=== PATIENT | male | born 2000 | race Two or more races ===

== ENCOUNTER 2022-01-10 16:43 | Emergency (ER) | payer BC, SELFPAY ==
[2022-01-10 17:12] VITALS: BP 124/79; PULSE 80; RESP 17; TEMP 36.3; O2SAT 98; BMI 26.8
[2022-01-10 17:24] LABS: Appearance Urine CLEAR; Color Urine OTHER; Glucose Urine UA NEG (NEG); Leukocyte Esterase Urine TRACE (NEG); Nitrite Urine NEG (NEG); PH 7.5 (5.0-8.0); Specific Gravity - Urine <= 1.005 (1.005-1.025); UACC Culture Trigger NO; Urine Blood 3+ (NEG); Urine Ketones NEG (NEG); Urine Protein TRACE MG/DL (NEG-TRACE)
[2022-01-10 17:36] LABS: Mucus Urine TRACE /LPF; Renal Epithelial Cells Urine TRACE /LPF; Squamous Epithelial Cell Urine TRACE /LPF; WBC Urine 0-2 /HPF (0-4)
--- NOTE | 2022-01-10 19:51 | ED_ITS ---
HPI - Male Genitourinary General Chief complaint: Urogenital-Male Stated complaint: blood in urine/testicle pain Time Seen by Provider: 01/10/22 18:28 Source: patient Mode of arrival: ambulatory Limitations: no limitations History of Present Illness HPI Narrative: Patient is a 21 year old male presenting to the emergency department today with blood in his urine and testicular pain. Patient states that over the last 3 weeks he has had intermittent testicular pain and blood in his urine. Patient states that he is sexually active. Patient denies any dizziness, lightheadedness, abdominal pain, nausea, vomiting, fever, chills, blurry vision, double vision, loss of vision, chest pain, difficulty breathing, shortness of breath, back pain, night sweats, pain with urination, increased urinary frequency, increased urinary urgency, blood in his stool, syncope or a near syncopal episode, recent trauma or falls, bowel incontinence, bladder incontinence, bowel retention, bladder retention, or any other complaints at this time. MD Complaint: testicle pain Onset (ago): week(s) (3) Duration: intermittent Location: right testicle and left testicle Severity: mild Severity scale (1-10): 3 Quality: dull Relieving factors: none Exacerbating factors: none Associated symptoms: Reports blood in urine Related Data Sexually active: Yes Previous Rx's Medication Instructions Recorded doxycycline hyclate 100 mg capsule 100 mg PO BID 10 Days #20 cap 01/10/22 Allergies Allergy/AdvReac Type Severity Reaction Status Date / Time No Known Allergies Allergy Verified 01/10/22 17:16 [No Known Allergies*] Review of Systems Constitutional: Constitutional: Reports no additional constitutional complaints, Denies chills, Denies fever(s) and Denies night sweats Eyes: Eyes: Reports no additional eye complaints, Denies blurry vision, Denies change in vision, Denies diplopia, Denies eye discharge, Denies loss of vision and Denies eye pain ENT: Denies dizziness Cardiovascular: Cardiovascular: Reports no additional cardiovascular complaints, Denies chest pain, Denies lightheadedness, Denies Loss of Consciousness and Denies dyspnea Respiratory: Respiratory: Reports no additional respiratory complaints and Denies dyspnea Gastrointestinal: Gastrointestinal: Reports no additional gastrointestinal complaints, Denies abdominal pain, Denies melena, Denies hematochezia, Denies change in bowel habits and Denies change in stool character Genitourinary: Genitourinary: Reports no additional male genitourinary complaints, Reports hematuria, Denies oliguria, Denies difficulty urinating, Denies dysuria, Reports testicular pain, Denies urinary frequency, Denies urinary hesitancy, Denies urinary incontinence and Denies urinary urgency Musculoskeletal: Musculoskeletal: Reports no additional musculoskeletal complaints, Denies numbness and Denies tingling Neurologic: Denies dizziness, Denies loss of vision, Denies numbness and Denies tingling Psychiatric: Psychiatric: Reports no additional psychiatric complaints Endocrine: Endocrine: Reports no additional endocrine complaints Hematologic/Lymphatic: Hematologic/Lymphatic: Reports no additional hematologic/lymphatic complaints Allergic/Immunologic: Allergic/Immunologic: Reports no additional allergic/immunologic complaints PMFSH Past Medical History Attestation statement: The following information was validated with the patient. Source: old records reviewed Social History Social History Advance Directives: No Advance Directives Information Provided: No Physical Exam Vital Signs: Vital Signs: Last Vital Signs Temp 97.3 F 01/10/22 17:12 Pulse 80 01/10/22 17:12 Resp 17 01/10/22 17:12 BP 124/79 01/10/22 17:12 Pulse Ox 98 01/10/22 17:12 BMI result Body Mass Index 26.8 Const: General: cooperative, no acute distress, alert and awake Nutritional Appearance: well nourished Orientation/consciousness: patient oriented x3 Limitations: no limitations HEENT: Head: Yes normal to inspection and Yes atraumatic Ears: hearing grossly normal bilaterally and external ears normal General nose exam: Normal external nose present, no nasal discharge noted and no epistaxis Face and sinus: Yes normal facial exam, No abrasion and No laceration Mouth: Normal oral and palatal mucosa present, no drooling and no muffled voice Eyes: General: appearance normal, both eyes and all related structures Periorbital: periorbital findings normal Eyelids: Yes eyelids normal Conjunctivae: conjunctivae normal Pupils: Equal, round and reactive pupils present EOM: EOMs intact bilaterally Neck: Neck: Yes normal visual inspection, Yes full ROM and Yes no lymphadenopathy Chest: Chest palpation & inspection: normal inspection of the chest Resp: Effort & Inspection: normal respiratory effort and able to speak in complete sentences Auscultation: clear to auscultation bilaterally Cardio: Rate: regular rate Rhythm: regular rhythm GI: Inspection: Yes normal to inspection Neuro: General: patient oriented x3 and moves all extremities Cranial nerves: Yes Equal, round and reactive pupils present Cognition (Neuro): normal cognition Motor exam (neuro): 5/5 motor strength present throughout Sensory Exam: Normal double simultaneous stimulation for sensation Coordination: [id number] test normal Extrem: General: Yes normal to inspection, Yes full ROM and Yes capillary refill normal Psych: Appearance: grossly normal Mental Status: mental status grossly normal Affect: normal affect Attitude: cooperative Thought process: Normal thought process present Thought content: Normal thought content present Insight: Good insight present (Psych) MDM - Male Genitourinary MDM Narrative Medical decision making narrative: Patient is a 21 year old male presenting to the emergency department today with blood in his urine and intermittent testicular pain. Patient's physical exam was unremarkable. Patient's urine showed blood but was otherwise unremarkable. I explained my physical exam findings as well as all test results to the patient. I answered all questions asked by the patient. Patient received IM Rocephin. I stressed the importance of the patient taking his medication as prescribed. I stressed the importance of the patient following up with his primary care provider. I stressed the importance of the patient returning to the emergency department immediately if his symptoms were to worsen or if he were to develop any dizziness, shortness of breath, difficulty breathing, chest pain, blurry vision, loss of vision, nausea, vomiting, abdominal pain, fever, chills, back pain, or any other complaints. Patient verbalized agreement and understanding with this treatment plan and discharge. Differential Diagnosis Differential diagnosis: Likely epididymitis Medical Records Attestation: I reviewed the patient's medical records. Lab Data Attestation: I reviewed the patient's lab results. Labs: Lab Results 01/10/22 Range/Units 17:16 Urine Color OTHER A Urine Appearance CLEAR Urine pH 7.5 (5.0-8.0) Ur Specific Shaw <= 1.005 (1.005-1.025) Urine Protein TRACE (NEG-TRACE) MG/DL Urine Glucose (UA) NEG (NEG) MG/DL Urine Ketones NEG (NEG) MG/DL Urine Blood 3+ H (NEG) Urine Nitrite NEG (NEG) Ur Leukocyte Esterase TRACE H (NEG) Urine RBC 15-29 H (0) /HPF Urine WBC 0-2 (0-4) /HPF Ur Squamous Epith Cells TRACE /LPF Ur Renal Epithelial Cell TRACE /LPF Urine Bacteria NONE /LPF Urine Mucus TRACE /LPF Discharge Plan Discharge Clinical Impression: Acute epididymitis Patient Disposition: Home, Self-Care Instructions: Epididymitis (ED) Additional Instructions: Follow up with your primary care provider. Return to the emergency department immediately if your symptoms worsen or if you develop any dizziness, shortness of breath, difficulty breathing, chest pain, blurry vision, loss of vision, nausea, vomiting, abdominal pain, fever, chills, back pain, or any other complaints. Prescriptions: New doxycycline hyclate 100 mg capsule 100 mg PO BID 10 Days Qty: 20 0RF Referrals: [facility] [Provider Group] Print Language: Honduran
[2022-01-10] MEDS: cefTRIAXone sodium 500 MG, Lidocaine HCl 1 % MPF 1 ML IM (20:29)
--- NOTE | 2022-01-10 20:41 | PC.NURSE ---
URINE CT/NG NOT NEEDED PER CLAUDE GONZALES.
== END 2022-01-10 20:40 | disposition home or self-care (01) ==
PROVIDERS: Emergency Provider Internal Medicine
DX: N45.1 Epididymitis (principal); R31.9 Hematuria, unspecified; N50.812 Left testicular pain; N50.811 Right testicular pain
CPT/HCPCS: 81001; 96372; 99284; J0696

== ENCOUNTER 2022-01-28 10:20 | Inpatient (IN) | payer BC, SELFPAY ==
[2022-01-28] VITALS (8 sets, daily range): BP systolic 118–128; BP diastolic 63–85; PULSE 51–82; RESP 16–18; TEMP 36.3–36.9; O2SAT 98–100; BMI 25.9
--- NOTE | ~2022-01-28 | CT_ITS ---
EXAMINATION: CT ABDOMEN AND PELVIS WITHOUT CONTRAST CLINICAL INFORMATION: Right lower quadrant abdominal pain. Nausea and vomiting. COMPARISON: None TECHNIQUE: Multidetector volumetric imaging was performed from the superior aspect of the liver through the pubic symphysis. Sagittal and coronal reformatted images were obtained on the technologist's workstation. This CT examination was performed using dose optimization techniques as appropriate, variously including the following: *Automated exposure control *Adjustment of mA and/or kV according to patient size (this includes techniques or standardized protocols for targeted exams where dose is matched to indication/reason for exam; i.e. extremities or head) *Use of iterative reconstruction technique DLP: 505 mGy-cm FINDINGS: LUNG BASES: The visualized lung bases are unremarkable. LIVER, GALLBLADDER, AND BILIARY TREE: The liver is normal in size, shape, and attenuation. No focal hepatic lesion or biliary ductal dilatation is present. The gallbladder is unremarkable with no evidence of radiopaque gallstones, gallbladder wall thickening, or obvious pericholecystic inflammatory changes. PANCREAS: Unremarkable. SPLEEN: Unremarkable. ADRENAL GLANDS: Unremarkable. KIDNEYS AND URETERS: The kidneys are normal in size, shape, and attenuation. There is a 1.4 cm stone at the left ureteropelvic junction measuring up to 788 Hounsfield units and located 12.5 cm from the posterior axillary line. There is mild proximal hydronephrosis with mild adjacent stranding. There is an additional left renal pelvic stone within the lower pole measuring up to 1.1 cm. Nonobstructing right upper pole renal stone measuring 0.4 cm. No right ureteral stone. No right-sided hydronephrosis or hydroureter. BLADDER: Unremarkable. GASTROINTESTINAL TRACT: No small- or large-bowel obstruction. No bowel wall thickening or inflammatory change. The appendix is fluid-filled with multiple small appendicoliths. There is slight dilatation measuring up to 0.9 cm with adjacent stranding. Findings are consistent with early appendicitis. No extraluminal air or organized fluid collection to suggest leak or rupture. ABDOMINAL WALL: No significant hernia is appreciated. LYMPH NODES: Normal. VASCULAR: Unremarkable. PELVIC VISCERA: The prostate and seminal vesicles are unremarkable. OSSEOUS STRUCTURES: Unremarkable. CT/CT abdomen pelvis wo con IMPRESSION: 1. Mildly dilated, fluid-filled appendix with multiple small appendicoliths and mild adjacent stranding consistent with acute appendicitis. No evidence of perforation or abscess formation. 2. Left renal pelvic stone measuring 1.4 cm with adjacent stranding and mild left-sided hydronephrosis. Additional 1.1 cm left lower pole renal stone. Nonobstructing right-sided 0.4 cm renal stone. No right-sided hydronephrosis or hydroureter. Fleischner guidelines were followed.
[2022-01-28 11:17] LABS: MANUAL DIFF FLAG NO
[2022-01-28 11:20] LABS: Basophils Absolute Auto 0.1 X10*3/uL (0.0-0.2); Basophils Percent Auto 0.5 % (0-2); Eosinophils Percent Auto 0.3 % (0-4); Hematocrit 43.5 % (42.0-52.0); Hemoglobin 14.7 g/dl (14.0-18.0); Imm Gran Abs Auto 0.06 X10*3/uL (0.00-0.03); Imm Gran Pct Auto 0.4 % (0.0-0.4); Lymphocytes Absolute Auto 1.3 X10*3/uL (1.2-4.9); Lymphocytes Percent Auto 8.7 % (20-40); Mean Corpuscular HGB Conc 33.8 g/dl (31.0-36.0); Mean Corpuscular Hemoglobin 28.4 pg (27.0-33.0); Mean Corpuscular Volume 84.1 fL (80.0-98.0); Mean Platelet Volume 8.8 fL (9.4-12.4); Monocytes Absolute Auto 0.7 X10*3/uL (0.1-1.2); Monocytes Percent Auto 4.8 % (2-11); Neutrophils Absolute Auto 12.2 x10*3/uL (2.0-8.3); Neutrophils Percent Auto 85.3 % (45-73); Platelet Count 289 X10*3/uL (160-400); Red Blood Count 5.17 X10*6/uL (4.60-5.80); Red Cell Distribution Width 12.4 % (11.0-16.0); White Blood Count 14.3 X10*3/uL (4.8-10.8)
[2022-01-28 11:40] LABS: Alanine Aminotransferase 16 U/L (0-40); Albumin Level 5.3 g/dL (3.5-5.0); Alkaline Phosphatase 57 U/L (39-117); Anion Gap 17 (12-20); Aspartate Amino Transferase 16 U/L (5-37); Bilirubin Direct 0.5 mg/dL (0.0-0.5); Bilirubin Total 1.3 mg/dL (0.0-1.0); Blood Urea Nitrogen 14 mg/dL (9-16); COVID-19 Test Negative (Negative); Calcium 10.6 mg/dL (8.4-10.2); Carbon Dioxide 26 mmol/L (22-29); Chloride 103 mmol/L (96-108); Creatinine Clr Calc Pharmacy 90.5; Estimated Glomerular Filt Rate > 60; Glucose Random 115 mg/dL (60-115); IDNOW Serial# 16C4AD1C; Potassium 3.7 mmol/L (3.3-5.1); Sodium 142 mmol/L (135-145); Total Protein 8.5 g/dL (6.5-8.0)
[2022-01-28 11:48] LABS: IDNOW Serial# 9DB6401D; Influenza A Negative (Negative); Influenza B2 Negative (Negative)
--- NOTE | 2022-01-28 15:46 | ED_ITS ---
HPI - Abdominal Pain General Chief Complaint: Abdominal Pain Stated Complaint: ABD PAIN VOMITTING Time Seen by Provider: 01/28/22 15:34 Source: patient Mode of arrival: ambulatory History of Present Illness HPI narrative: 21-year-old male with no significant past medical history presenting to the ED complaining of severe periumbilical abdominal pain that woke him from sleep around 8:30 this morning with associated nausea and nonbloody emesis. Admits to 6 episodes of emesis in our waiting room. Also reports subjective fever and chills. Denies diarrhea, dysuria/hematuria, suspicious food intake, recent travel, sick contacts MD elicited complaint: abdominal pain Pertinent past history: none Onset (ago): hour(s) Related Data Previous Rx's Medication Instructions Recorded doxycycline hyclate 100 mg capsule 100 mg PO BID 10 Days #20 cap 01/10/22 Allergies Allergy/AdvReac Type Severity Reaction Status Date / Time No Known Allergies Allergy Verified 01/10/22 17:16 [No Known Allergies*] Review of Systems Review of Systems Constitutional: No Fever, No Chills, No Night Sweats, No Fatigue, No Malaise ENT/Mouth: No Ear Pain, No Nasal Congestion, No sore throat, No Rhinorrhea, No S wallowing Difficulty Eyes: No Eye Pain, No Swelling, No Redness Cardiovascular: No Chest Pain, No SOB, No Edema, No Palpitations Respiratory: No Cough, No Sputum, No Dyspnea Gastrointestinal: + Nausea, + Vomiting, No Diarrhea, No Constipation, + Abdominal pain, No Hematochezia, No Melena Genitourinary: No irregular bleeding, No Dysuria, No Urinary Frequency, No Hematuria, No Flank Pain, No Urinary Flow Changes, No Hesitancy Musculoskeletal: No joint pain, No Myalgias, No Joint Swelling Skin: No Skin Lesions, No rash Neuro: No Weakness, No Dizziness, No Headache Yes all other systems are reviewed and are negative [facility] Past Medical History Attestation statement: The following information was validated with the patient. Medical History (Updated 01/28/22 @ 16:50 by CHRISTIAN Bender) Kidney stone Social History Social History Advance Directives: No Advance Directives Information Provided: No Physical Exam ED Vital Signs: Vital Signs - 24 hr 01/28/22 10:38 01/28/22 15:35 Temperature 98.4 F Pulse Rate 59 51 Respiratory Rate 18 16 Blood Pressure 128/85 121/66 Pulse Oximetry 100 98 BMI result Body Mass Index 25.9 Const General: cooperative, healthy appearing and no acute distress Orientation/consciousness: patient oriented x3 Limitations: no limitations HENMT Head: Yes normal to inspection and Yes atraumatic Ears: hearing grossly normal bilaterally General nose exam: Normal external nose present Face and sinus: Yes normal facial exam Eyes General: appearance normal, both eyes and all related structures EOM: EOMs intact bilaterally Neck Neck: Yes normal visual inspection and Yes no meningeal signs Resp Effort & Inspection: normal respiratory effort and no respiratory distress Cardio Rate: regular rate Heart sounds: S1 normal heart sound present and S2 normal heart sound present GI Inspection: Yes normal to inspection Palpation (GI): Soft to palpation, Tenderness to palpation present (GI) in the RLQ; Negative for with no rebound tenderness, no guarding and not rigid General: Yes no CVA tenderness Back/Spine/Pelvis Back: no CVA tenderness Skin Rashes: no rashes Wounds: no wounds Neuro General: patient oriented x3, tone normal and no meningeal signs Gait exam (Neuro): Normal gait present Extrem General: Yes normal to inspection Course Course Course Narrative: -[id number]--noted leukocytosis of 14.3. Labs otherwise unremarkable. -Lactic acid negative CT abdomen pelvis wo con IMPRESSION: 1. Mildly dilated, fluid-filled appendix with multiple small appendicoliths and mild adjacent stranding consistent with acute appendicitis. No evidence of perforation or abscess formation. ? 2. Left renal pelvic stone measuring 1.4 cm with adjacent stranding and mild left-sided hydronephrosis. Additional 1.1 cm left lower pole renal stone. Nonobstructing right-sided 0.4 cm renal stone. No right-sided hydronephrosis or hydroureter.? ? Fleischner guidelines were followed. >> surgery Dr. Dorsey was consulted and is at bedside, plan is for OR MDM - Abdominal Pain MDM Narrative Medical decision making narrative: 21-year-old male with no significant past medical history presenting to the ED complaining of severe periumbilical abdominal pain that woke him from sleep around 8:30 this morning with associated nausea and nonbloody emesis. On exam vital signs stable, NAD, abdomen soft with RLQ tenderness, no rebound or guarding, no CVA tenderness. Concern for acute appendicitis vs diverticulitis. Rule out UTI. Lower concern for pyelo, pancreatitis, or cholecystitis. Low concern for SBO Plan: Labs, UA, COVID-19/influenza testing, IVF, antiemetics, CT, re-evaluate Differential Diagnosis Differential diagnosis: Likely abdominal pain, acute appendicitis, calculus of kidney, diverticulitis, gastroenteritis, gastritis, pancreatitis and renal colic Medical Records Attestation: I reviewed the patient's medical records. Lab Data Attestation: I reviewed the patient's lab results. Result diagrams: 01/28/22 11:12 01/28/22 11:12 Labs: Lab Results 01/28/22 01/28/22 01/28/22 Range/Units 11:12 11:12 11:12 WBC 14.3 H (4.8-10.8) X10*3/uL RBC 5.17 (4.60-5.80) X10*6/uL Hgb 14.7 (14.0-18.0) g/dl Hct 43.5 (42.0-52.0) % MCV 84.1 (80.0-98.0) fL MCH 28.4 (27.0-33.0) pg MCHC 33.8 (31.0-36.0) g/dl RDW 12.4 (11.0-16.0) % Plt Count 289 (160-400) X10*3/uL MPV 8.8 L (9.4-12.4) fL Immature Gran % (Auto) 0.4 (0.0-0.4) % Neut % (Auto) 85.3 H (45-73) % Lymph % (Auto) 8.7 L (20-40) % [place] % (Auto) 4.8 (2-11) % Eos % (Auto) 0.3 (0-4) % Baso % (Auto) 0.5 (0-2) % Lymph # (Auto) 1.3 (1.2-4.9) X10*3/uL [place] # (Auto) 0.7 (0.1-1.2) X10*3/uL Eos # (Auto) 0.0 (0.0-0.4) X10*3/uL Baso # (Auto) 0.1 (0.0-0.2) X10*3/uL Abs Immat Gran (auto) 0.06 H (0.00-0.03) X10*3/uL Absolute Neuts (auto) 12.2 H (2.0-8.3) x10*3/uL Absolute Nucleated RBC 0.000 (0.0-0.012) X10*3/uL Nucleated RBC % (auto) 0.0 (0.0-0.2) /100WBC Sodium 142 (135-145) mmol/L Potassium 3.7 (3.3-5.1) mmol/L Chloride 103 (96-108) mmol/L Carbon Dioxide 26 (22-29) mmol/L Anion Gap 17 (12-20) BUN 14 (9-16) mg/dL Creatinine 1.28 (0.5-1.4) mg/dL Estim Creat Clear Calc 90.5 Estimated GFR > 60 Random Glucose 115 (60-115) mg/dL Lactic Acid (0.5-2.0) mmol/L Calcium 10.6 H (8.4-10.2) mg/dL Magnesium 1.9 (1.6-2.6) mg/dL Total Bilirubin 1.3 H (0.0-1.0) mg/dL Direct Bilirubin 0.5 (0.0-0.5) mg/dL AST 16 (5-37) U/L ALT 16 (0-40) U/L Alkaline Phosphatase 57 (39-117) U/L Total Protein 8.5 H (6.5-8.0) g/dL Albumin 5.3 H (3.5-5.0) g/dL Lipase 30 (8-78) U/L COVID-19 (SHIN) (Negative) COVID-19 Clin Com Influenza Type A (CRISTINA) Negative (Negative) Influenza Type B (CRISTINA) Negative (Negative) Influenza A & B Note See Note 01/28/22 01/28/22 Range/Units 11:12 16:12 WBC (4.8-10.8) X10*3/uL RBC (4.60-5.80) X10*6/uL Hgb (14.0-18.0) g/dl Hct (42.0-52.0) % MCV (80.0-98.0) fL MCH (27.0-33.0) pg MCHC (31.0-36.0) g/dl RDW (11.0-16.0) % Plt Count (160-400) X10*3/uL MPV (9.4-12.4) fL Immature Gran % (Auto) (0.0-0.4) % Neut % (Auto) (45-73) % Lymph % (Auto) (20-40) % [place] % (Auto) (2-11) % Eos % (Auto) (0-4) % Baso % (Auto) (0-2) % Lymph # (Auto) (1.2-4.9) X10*3/uL [place] # (Auto) (0.1-1.2) X10*3/uL Eos # (Auto) (0.0-0.4) X10*3/uL Baso # (Auto) (0.0-0.2) X10*3/uL Abs Immat Gran (auto) (0.00-0.03) X10*3/uL Absolute Neuts (auto) (2.0-8.3) x10*3/uL Absolute Nucleated RBC (0.0-0.012) X10*3/uL Nucleated RBC % (auto) (0.0-0.2) /100WBC Sodium (135-145) mmol/L Potassium (3.3-5.1) mmol/L Chloride (96-108) mmol/L Carbon Dioxide (22-29) mmol/L Anion Gap (12-20) BUN (9-16) mg/dL Creatinine (0.5-1.4) mg/dL Estim Creat Clear Calc Estimated GFR Random Glucose (60-115) mg/dL Lactic Acid 1.2 (0.5-2.0) mmol/L Calcium (8.4-10.2) mg/dL Magnesium (1.6-2.6) mg/dL Total Bilirubin (0.0-1.0) mg/dL Direct Bilirubin (0.0-0.5) mg/dL AST (5-37) U/L ALT (0-40) U/L Alkaline Phosphatase (39-117) U/L Total Protein (6.5-8.0) g/dL Albumin (3.5-5.0) g/dL Lipase (8-78) U/L COVID-19 (SHIN) Negative (Negative) COVID-19 Clin Com See Note Influenza Type A (CRISTINA) (Negative) Influenza Type B (CRISTINA) (Negative) Influenza A & B Note Discharge Plan Discharge Clinical Impression: Acute appendicitis, Ureteropelvic junction calculus Patient Disposition: Admitted As Inpatient Prescriptions: No Action doxycycline hyclate 100 mg capsule 100 mg PO BID 10 Days Qty: 20 0RF
[2022-01-28 15:56] LABS: Lipase 30 U/L (8-78); Magnesium 1.9 mg/dL (1.6-2.6)
--- NOTE | 2022-01-28 16:04 | P.HPGS_ITS ---
History of Present Illness History of Present Illness Date of Service: 01/29/22 Chief complaint: Acute Appendicitis Narrative: Jason Rogers is a 21 year old male who started to have RLQ pain at around 830 a.m. today. He says he was in his usually state of health when he went to bed last night. He says the RLQ pain persisted throught the day. He describes vomitting this afternoon. He denies any diarrhea. He was here in the ED 2 weeks ago for hematuria and was told he had epididymitis . He was given oral antibiotics for this. He denies any fever or chills. His mother states that he was doubled up with pain earlier today. Review of Systems Constitutional: Constitutional: Denies chills and Denies fever(s) Cardiovascular: Cardiovascular: Denies chest pain, Denies dyspnea and Denies dyspnea on exertion Respiratory: Respiratory: Denies cough, Denies dyspnea and Denies dyspnea on exertion Gastrointestinal: Gastrointestinal: Denies hematochezia and Denies change in bowel habits Genitourinary: Genitourinary: Denies hematuria and Denies difficulty urinating Musculoskeletal: Musculoskeletal: Denies back pain and Denies limited range of motion Neurologic: Denies focal weakness and Denies convulsions Psychiatric: Psychiatric: Denies depression and Denies mood swings PMFSH Past Medical History Medical History (Updated 01/28/22 @ 16:50 by CHRISTIAN Bender) Kidney stone Social History Social History Household Members: Family Housing: House Do you presently have visiting nurse or other home services: No Patient Tobacco Use Status: Current everyday Tobacco user Tobacco use type: Cigarette Smoked in Last 30 Days: Yes Patient Interested in Nicotine Replacement: No Patient Given Instructions on How to Stop Smoking: Yes Date Education Initiated: 01/28/22 Substance Use Type: Marijuana Substance Use Frequency: Weekly Last Used Substance: Days (ago) Currently Displaying Signs/Symptoms of Drug Intoxication Withdrawal: No Any prior treatment program specific to substance use: No Have you been hit, kicked, punched, or otherwise hurt by someone within the past year? If so, by whom?: No Do you feel safe in your current relationship?: Yes Is there a partner from a previous relationship who is making you feel unsafe now?: No Are you made to feel afraid or neglected: No Advance Directives: No Advance Directives Information Provided: No Do you have thoughts of harming others: None Do you have a plan to hurt others: No Plan Recently lost weight without trying: No Nutrition Risks: No Nutritional Risk service: No Current occupational status: employed Meds Allergies Allergy/AdvReac Type Severity Reaction Status Date / Time No Known Allergies Allergy Verified 01/10/22 17:16 [No Known Allergies*] Active Medications: Current Medications Sodium Chloride (Ns) 1,000 mls @ 999 mls/hr IV .Q1H1M KIKE Stop: 01/28/22 16:45 Physical Exam Vital Signs: Vital Signs: Last Vital Signs Temp 98.4 F 01/28/22 15:35 Pulse 51 01/28/22 15:35 Resp 16 01/28/22 15:35 BP 121/66 01/28/22 15:35 Pulse Ox 98 01/28/22 15:35 BMI result Body Mass Index 25.9 Const: General: comfortable and no acute distress Orientation/consciousness: patient oriented x3 Neck: Neck: Yes no lymphadenopathy Resp: Auscultation: clear to auscultation bilaterally Cardio: Rhythm: regular rhythm GI: Other: markedly tender on the right lower quadrant, no rebound or guarding Palpation (GI): Soft to palpation, Tenderness to palpation present (GI) and no guarding Neuro: General: patient oriented x3 Results Results Labs: Short CBC 01/28/22 Range/Units 11:12 WBC 14.3 H (4.8-10.8) X10*3/uL Hgb 14.7 (14.0-18.0) g/dl Hct 43.5 (42.0-52.0) % Plt Count 289 (160-400) X10*3/uL BMP 01/28/22 11:12 Sodium 142 Potassium 3.7 Chloride 103 Carbon Dioxide 26 BUN 14 Creatinine 1.28 Calcium 10.6 H Liver Function 01/28/22 Range/Units 11:12 Total Bilirubin 1.3 H (0.0-1.0) mg/dL Direct Bilirubin 0.5 (0.0-0.5) mg/dL AST 16 (5-37) U/L ALT 16 (0-40) U/L Alkaline Phosphatase 57 (39-117) U/L Albumin 5.3 H (3.5-5.0) g/dL Abdomen CT scan report/results: report reviewed and image reviewed CT scan - pelvis: report reviewed and image reviewed Additional studies: Laboratory Results WBC 14.3 X10*3/uL (4.8-10.8) H 01/28/22 11:12 RBC 5.17 X10*6/uL (4.60-5.80) 01/28/22 11:12 Hgb 14.7 g/dl (14.0-18.0) 01/28/22 11:12 Hct 43.5 % (42.0-52.0) 01/28/22 11:12 MCV 84.1 fL (80.0-98.0) 01/28/22 11:12 MCH 28.4 pg (27.0-33.0) 01/28/22 11:12 MCHC 33.8 g/dl (31.0-36.0) 01/28/22 11:12 RDW 12.4 % (11.0-16.0) 01/28/22 11:12 Plt Count 289 X10*3/uL (160-400) 01/28/22 11:12 MPV 8.8 fL (9.4-12.4) L 01/28/22 11:12 Immature Gran % (Auto) 0.4 % (0.0-0.4) 01/28/22 11:12 Neut % (Auto) 85.3 % (45-73) H 01/28/22 11:12 Lymph % (Auto) 8.7 % (20-40) L 01/28/22 11:12 [place] % (Auto) 4.8 % (2-11) 01/28/22 11:12 Eos % (Auto) 0.3 % (0-4) 01/28/22 11:12 Baso % (Auto) 0.5 % (0-2) 01/28/22 11:12 Lymph # (Auto) 1.3 X10*3/uL (1.2-4.9) 01/28/22 11:12 [place] # (Auto) 0.7 X10*3/uL (0.1-1.2) 01/28/22 11:12 Eos # (Auto) 0.0 X10*3/uL (0.0-0.4) 01/28/22 11:12 Baso # (Auto) 0.1 X10*3/uL (0.0-0.2) 01/28/22 11:12 Abs Immat Gran (auto) 0.06 X10*3/uL (0.00-0.03) H 01/28/22 11:12 Absolute Neuts (auto) 12.2 x10*3/uL (2.0-8.3) H 01/28/22 11:12 Absolute Nucleated RBC 0.000 X10*3/uL (0.0-0.012) 01/28/22 11:12 Nucleated RBC % (auto) 0.0 /100WBC (0.0-0.2) 01/28/22 11:12 Sodium 142 mmol/L (135-145) 01/28/22 11:12 Potassium 3.7 mmol/L (3.3-5.1) 01/28/22 11:12 Chloride 103 mmol/L (96-108) 01/28/22 11:12 Carbon Dioxide 26 mmol/L (22-29) 01/28/22 11:12 Anion Gap 17 (12-20) 01/28/22 11:12 BUN 14 mg/dL (9-16) 01/28/22 11:12 Creatinine 1.28 mg/dL (0.5-1.4) 01/28/22 11:12 Estim Creat Clear Calc 90.5 01/28/22 11:12 Estimated GFR > 60 01/28/22 11:12 Random Glucose 115 mg/dL (60-115) 01/28/22 11:12 Lactic Acid 1.2 mmol/L (0.5-2.0) 01/28/22 16:12 Calcium 10.6 mg/dL (8.4-10.2) H 01/28/22 11:12 Magnesium 1.9 mg/dL (1.6-2.6) 01/28/22 11:12 Total Bilirubin 1.3 mg/dL (0.0-1.0) H 01/28/22 11:12 Direct Bilirubin 0.5 mg/dL (0.0-0.5) 01/28/22 11:12 AST 16 U/L (5-37) 01/28/22 11:12 ALT 16 U/L (0-40) 01/28/22 11:12 Alkaline Phosphatase 57 U/L (39-117) 01/28/22 11:12 Total Protein 8.5 g/dL (6.5-8.0) H 01/28/22 11:12 Albumin 5.3 g/dL (3.5-5.0) H 01/28/22 11:12 Lipase 30 U/L (8-78) 01/28/22 11:12 COVID-19 (SHIN) Negative (Negative) 01/28/22 11:12 COVID-19 Clin Com See Note 01/28/22 11:12 Influenza Type A (CRISTINA) Negative (Negative) 01/28/22 11:12 Influenza Type B (CRISTINA) Negative (Negative) 01/28/22 11:12 Influenza A & B Note See Note 01/28/22 11:12 Impressions Abdomen/Pelvis CT 01/28/22 16:05 IMPRESSION: 1. Mildly dilated, fluid-filled appendix with multiple small appendicoliths and mild adjacent stranding consistent with acute appendicitis. No evidence of perforation or abscess formation. 2. Left renal pelvic stone measuring 1.4 cm with adjacent stranding and mild left-sided hydronephrosis. Additional 1.1 cm left lower pole renal stone. Nonobstructing right-sided 0.4 cm renal stone. No right-sided hydronephrosis or hydroureter. Fleischner guidelines were followed. Assessment and Plan (1) Acute appendicitis: Status: Acute He has pain on and tenderness on the RLQ and his CT scan shows inflammatory changes in the appendix consistent with acute appendicitis. There are appendicoliths as well. I therefore explained to him the option of proceeding with lap appendectomy and possible open. I reviewed with him the risks including but not limited to bleeding, infections, bowel injury, urinary tract injury, staple line leak, abscesses, as well as the benefits and alternatives. He understands the option of antibiotic treatment alone. The presence of appendicoliths decreases the success rate of treatment without surgery. He wants to proceed with lap appendectomy. He also has kidney stones on both sides, with one in the UPJ in the left, with some hydronephrosis. These do not appear to be causing any acute symptoms, but he understands he may need urologic intervention for these down the line. His mother was with him during the discussion and understood the plan as well. Quality Stroke Does the patient have a stroke diagnosis?: No VTE Prior VTE?: No VTE Risk Level:: Medical - low VTE Device Contraindication: Treatment Not Indicated VTE Drug Contraindication: Treatment Not Indicated Procedures Date of Service Date of Service: 01/28/22
[2022-01-28 16:34] LABS: Lactic Acid 1.2 mmol/L (0.5-2.0)
--- NOTE | 2022-01-28 17:12 | PHA.MEDREC ---
Pharmacy Consult ? Medication Reconciliation Pharmacy has completed the medication reconciliation.
[2022-01-28] MEDS: Ketorolac Tromethamine 15 MG/ML VIAL IVPUSH (17:21)
[2022-01-28] MEDS: ondansetron HCL 4 MG/2 ML VIAL IVPUSH (17:22)
[2022-01-28] MEDS: 0.9 % Sodium Chloride 1,000 ML 999 ML IV (17:22)
--- NOTE | 2022-01-28 17:55 | HO.ANESPROP2 ---
HPI - Anesthesia Eval Consult details Narrative: Acute appendicitis PMFSH Active Problems Active Problems: All Active Problems (Updated 01/28/22 @ 16:50 by CHRISTIAN Bender) Acute appendicitis (Acute) Ureteropelvic junction calculus (Acute) Kidney stone (Acute) Past Medical History Medical History (Updated 01/28/22 @ 16:50 by CHRISTIAN Bender) Kidney stone Family History Family history of problems with anesthesia: No Surgical History History of Problems with Anesthesia: No Social History Social History Advance Directives: No Advance Directives Information Provided: No Meds Allergies Allergy/AdvReac Type Severity Reaction Status Date / Time No Known Allergies Allergy Verified 01/10/22 17:16 [No Known Allergies*] Active Medications: Current Medications Lactated Ringer's (Lr) 1,000 mls @ 100 mls/hr IVCONT .Q10H KIKE Morphine Sulfate (Morphine Sulfate 4 Mg/Ml Cartridge) 3 mg IVPUSH Q3H PRN; Protocol PRN Reason: Pain, Severe (Pain Scale 7-10) Ondansetron HCl (Ondansetron Hcl 4 Mg/2 Ml Vial) 4 mg IVPUSH Q8H PRN PRN Reason: nausea Sodium Chloride (0.9 % Sodium Chloride Flush 3 Ml Syringe) 3 ml IVFLUSH QSHIFT [facility] Home Medications Medication Instructions Recorded Confirmed Last Taken Type No Known Home Meds 01/28/22 01/28/22 Unknown History Exam Exam Date and Time: January 28, 2022 1755 Height,Weight and Vital Signs: Height 5 ft 9 in Weight 79.832 kg Last Vital Signs Temp 98.4 F 01/28/22 15:35 Pulse 51 01/28/22 15:35 Resp 16 01/28/22 15:35 BP 121/66 01/28/22 15:35 Pulse Ox 98 01/28/22 15:35 Pertinent Lab Results Pertinent Lab Results: Laboratory Tests 01/28/22 01/28/22 01/28/22 11:12 11:12 11:12 WBC 14.3 H RBC 5.17 Hgb 14.7 Hct 43.5 MCV 84.1 MCH 28.4 MCHC 33.8 RDW 12.4 Plt Count 289 MPV 8.8 L Immature Gran % (Auto) 0.4 Neut % (Auto) 85.3 H Lymph % (Auto) 8.7 L [place] % (Auto) 4.8 Eos % (Auto) 0.3 Baso % (Auto) 0.5 Lymph # (Auto) 1.3 [place] # (Auto) 0.7 Eos # (Auto) 0.0 Baso # (Auto) 0.1 Abs Immat Gran (auto) 0.06 H Absolute Neuts (auto) 12.2 H Absolute Nucleated RBC 0.000 Nucleated RBC % (auto) 0.0 Sodium 142 Potassium 3.7 Chloride 103 Carbon Dioxide 26 Anion Gap 17 BUN 14 Creatinine 1.28 Estim Creat Clear Calc 90.5 Estimated GFR > 60 Random Glucose 115 Lactic Acid Calcium 10.6 H Magnesium 1.9 Total Bilirubin 1.3 H Direct Bilirubin 0.5 AST 16 ALT 16 Alkaline Phosphatase 57 Total Protein 8.5 H Albumin 5.3 H Lipase 30 COVID-19 (SHIN) COVID-19 Clin Com Influenza Type A (CRISTINA) Negative Influenza Type B (CRISTINA) Negative Influenza A & B Note See Note 01/28/22 01/28/22 11:12 16:12 WBC RBC Hgb Hct MCV MCH MCHC RDW Plt Count MPV Immature Gran % (Auto) Neut % (Auto) Lymph % (Auto) [place] % (Auto) Eos % (Auto) Baso % (Auto) Lymph # (Auto) [place] # (Auto) Eos # (Auto) Baso # (Auto) Abs Immat Gran (auto) Absolute Neuts (auto) Absolute Nucleated RBC Nucleated RBC % (auto) Sodium Potassium Chloride Carbon Dioxide Anion Gap BUN Creatinine Estim Creat Clear Calc Estimated GFR Random Glucose Lactic Acid 1.2 Calcium Magnesium Total Bilirubin Direct Bilirubin AST ALT Alkaline Phosphatase Total Protein Albumin Lipase COVID-19 (SHIN) Negative COVID-19 Clin Com See Note Influenza Type A (CRISTINA) Influenza Type B (CRISTINA) Influenza A & B Note Airway Mallampati Class: I TM Dist: >3cm Neck ROM: Full Loose/Missing/Broken Teeth: No Heart: RRR Lungs: CTA Assessment and Plan Assessment Anesthesia Assessment: Anesthesia Plan Discussed and Chart Reviewed Final Anesthetic Review Family History of Problems with Anesthesia: No History of Problems with Anesthesia: No NPO: Yes ASA Class: I and Emergency Final Preanesthetic Review: No Changes in Pt Med Stat, Meds/Allgs Chart Reviewed, Consent Obtained/Reviewed and Anes Risks/Benef Reviewed Patient Risk: Low Procedure Risk: Intermediate Anesthetic Plan Anesthetic Plan: GA Disposition: Standard PACU
[2022-01-28] MEDS: Lactated Ringers 1,000 ML 100 ML IVCONT (18:08)
--- NOTE | 2022-01-28 19:25 | W.PM.OPN ---
Operative Note Operative Note Date of Service: 01/28/22 Narrative: Preop diagnosis: Acute appendicitis Postop diagnosis: Acute appendicitis Procedure: Laparoscopic Appendectomy Surgeon: Franc Dorsey MD The patient is a 21-year-old male who started to have right lower quadrant pain this morning. He was brought to the ER where a CT scan showed findings consistent with acute appendicitis. Had a white count of 14. He was tender in right lower quadrant. He understood the technique of laparoscopic appendectomy and possible open. He was aware of the risks, benefits, and alternatives. He was brought to the operating room. He was placed supine on the table under general anesthesia via endotracheal tube. The abdomen was prepped and draped in the usual sterile fashion. A surgical time-out was done. The patient received Cefotan 2 g IV preoperatively. Shaw catheter was inserted. I made a short infraumbilical incision using blade 15. This was carried down through the full-thickness of the skin and subcutaneous fat with blunt dissection down to the fascia. The fascia incised. The peritoneum was entered. Through this incision a Rashad port was introduced. Pneumoperitoneum was introduced to a pressure of 15 mm hg. From here on the rest of the procedures done under vision with the 10 mm laparoscoped With laparoscopic visualization I placed a 5/12 no port in the left lower quadrant via a small stab incision. A 5 mm port was introduced through a small stab incision on the suprapubic margin. The patient was placed in a head down and [id number] position. This allowed us to reflect the omentum no bowel loops away from the right lower quadrant. The cecum was seen. By following the skin was able to see the appendix laying on the so was. I applied a grasper on the distal 3rd of the appendix to put this stretch. The distal 3rd appeared iInflamed and edematous.With the appendix being put on stretch, I was able to clearly visualize its base. The base was clean and was not inflamed. I bluntly dissected the base create a mesenteric defect just off of the cecum. This was done using a [place] dissector. I then positioned an Endo-MICHAEL 30 mm stapler through the mesenteric defect across the base. This was fired and the appendix was transected. There was note of good hemostasis on the staple line.The appendix was retrieved through an Endo bag through the left lower quadrant incision. I reinserted all ports. I examined the dissection. There was note of good hemostasis. The staple line on the base appeared intact I observed all 4 quadrants. There was no other pathology seen. There was no evidence of any bowel injury. There was no bleeding on the port sites. With hemostasis ensured, I proceeded to irrigate the right lower quadrant a little bit. I pulled the omentum to positioned this to overlay the area of dissection on the right lower quadrant. We suctioned out the irrigant fluid. I desufflated through the port sites. I removed all ports under vision with the laparoscope. The umbilical port was removed last. The fascia of the umbilical incision was closed with [id number] Dexon 0 stitch. All skin incisions were closed with 1 4-0 subcuticular running sutures. All incisions were infiltrated with Marcaine 0.25% for postop analgesia. Steri-Strips and dressings were applied. The procedure was completed . The Shaw catheter was removed. The patient tolerated the procedure well. There were no immediate complications noted. Initial and final counts of sponges and instruments were correct. Estimated blood loss about 25 cc . The patient was extubated without difficulty and transferred to the recovery room with stable vital signs.
[2022-01-28] MEDS: Nicotine 7 MG PATCH.TD24 TRANSDERMA (22:42)
[2022-01-29] VITALS: BP 120/52; PULSE 57; RESP 18; TEMP 36.8; O2SAT 97
[2022-01-29 04:00] VITALS: BP 126/55; PULSE 54; RESP 18; TEMP 36.8; O2SAT 97
[2022-01-29] MEDS: Lactated Ringers 1,000 ML 100 ML IVCONT (04:27)
[2022-01-29] MEDS: oxyCODONE HCl Immed Release 5 MG TABLET PO (04:33)
--- NOTE | 2022-01-29 06:37 | HO.POSTANES ---
Post Anesthesia Evaluation Post Anesthesia Evaluation Vital Signs: Vital Signs Temp Pulse Resp BP Pulse Ox 01/29/22 04:00 98.2 F 54 18 126/55 L 97 01/29/22 00:00 98.3 F 57 18 120/52 L 97 01/28/22 20:33 98.4 F 56 17 121/64 98 01/28/22 19:42 98.4 F 58 16 122/64 98 01/28/22 19:37 61 16 98 01/28/22 19:32 69 16 118/63 99 01/28/22 19:27 97.3 F 82 18 121/68 100 Anesthesia: General Endotracheal-GETA Mental Status: Awake Pain Control: Satisfactory Nausea/Vomiting: None Hydration: Adequate Anesthesia-Related Issues: No Anes. Related Issues
--- NOTE | 2022-01-29 07:03 | PM.PNGS ---
Subjective Subjective Date of Service: 01/29/22 Interval history: says he is comfortable mild pain - 3/10 no events postop says he is ready to go home Physical Exam Vital Signs: Vital Signs: Last Vital Signs Temp 98.2 F 01/29/22 04:00 Pulse 54 01/29/22 04:00 Resp 18 01/29/22 04:00 BP 126/55 L 01/29/22 04:00 Pulse Ox 97 01/29/22 04:00 BMI result Body Mass Index 25.9 Const: General: comfortable and no acute distress Resp: Effort & Inspection: normal respiratory effort Cardio: Rate: regular rate GI: Other: dressings dry Palpation (GI): Soft to palpation, not firm and no guarding Objective Data Active Medications Albuterol Sulfate (Albuterol Sulfate (0.083%) 2.5 Mg/3 Ml Vial.Neb) 2.5 mg INHALE ONCE PRN PRN Reason: Wheezing Fentanyl (Fentanyl Citrate/Pf 100 Mcg/2 Ml Vial) 50 mcg IVPUSH Q5M PRN; Protocol PRN Reason: Pain, Severe (Pain Scale 7-10) Hydromorphone HCl (Hydromorphone Hcl 0.5 Mg/0.5 Ml Syringe) 0.5 mg IVPUSH Q5M PRN; Protocol PRN Reason: Pain, Severe (Pain Scale 7-10) Lactated Ringer's (Lr) 1,000 mls @ 100 mls/hr IVCONT .Q10H [facility] Last Admin: 01/29/22 04:27 Dose: 100 mls/hr Documented by: MAXWELL Promethazine HCl 12.5 mg/ (Sodium Chloride) 50.5 mls @ 202 mls/hr IV ONCE PRN PRN Reason: Nausea and Vomiting Ketorolac Tromethamine (Ketorolac Tromethamine 15 Mg/Ml Vial) 15 mg IVPUSH Q6H PRN PRN Reason: Pain, Moderate (Pain Scale 4-6 Morphine Sulfate (Morphine Sulfate 4 Mg/Ml Cartridge) 3 mg IVPUSH Q3H PRN; Protocol PRN Reason: Pain, Severe (Pain Scale 7-10) Nicotine (Nicotine 7 Mg Patch.Td24) 7 mg TRANSDERMA DAILY [facility] Last Admin: 01/28/22 22:42 Dose: 7 mg Documented by: CANDIDO Ondansetron HCl (Ondansetron Hcl 4 Mg/2 Ml Vial) 4 mg IVPUSH Q8H PRN PRN Reason: nausea Oxycodone HCl (Oxycodone Hcl Immed Release 5 Mg Tablet) 10 mg PO Q4H PRN PRN Reason: Pain, Moderate (Pain Scale 4-6 Sodium Chloride (0.9 % Sodium Chloride Flush 3 Ml Syringe) 3 ml IVFLUSH QSHIFT [facility] Last Admin: 01/29/22 00:30 Dose: Not Given Documented by: MAXWELL Non-Admin Reason: IV Running Labs CBC & Chem 7: 01/28/22 11:12 01/28/22 11:12 Labs: Laboratory Results - last 24 hr 01/28/22 01/28/22 01/28/22 11:12 11:12 11:12 MCV 84.1 MCH 28.4 MCHC 33.8 RDW 12.4 Plt Count 289 MPV 8.8 L Immature Gran % (Auto) 0.4 Neut % (Auto) 85.3 H Lymph % (Auto) 8.7 L [place] % (Auto) 4.8 Eos % (Auto) 0.3 Baso % (Auto) 0.5 Lymph # (Auto) 1.3 [place] # (Auto) 0.7 Eos # (Auto) 0.0 Baso # (Auto) 0.1 Abs Immat Gran (auto) 0.06 H Absolute Neuts (auto) 12.2 H Absolute Nucleated RBC 0.000 Nucleated RBC % (auto) 0.0 Anion Gap 17 Estim Creat Clear Calc 90.5 Estimated GFR > 60 Random Glucose 115 Lactic Acid Calcium 10.6 H Magnesium 1.9 Total Bilirubin 1.3 H Direct Bilirubin 0.5 AST 16 ALT 16 Alkaline Phosphatase 57 Total Protein 8.5 H Albumin 5.3 H Lipase 30 COVID-19 (SHIN) COVID-19 Clin Com Influenza Type A (CRISTINA) Negative Influenza Type B (CRISTINA) Negative Influenza A & B Note See Note 01/28/22 01/28/22 11:12 16:12 MCV MCH MCHC RDW Plt Count MPV Immature Gran % (Auto) Neut % (Auto) Lymph % (Auto) [place] % (Auto) Eos % (Auto) Baso % (Auto) Lymph # (Auto) [place] # (Auto) Eos # (Auto) Baso # (Auto) Abs Immat Gran (auto) Absolute Neuts (auto) Absolute Nucleated RBC Nucleated RBC % (auto) Anion Gap Estim Creat Clear Calc Estimated GFR Random Glucose Lactic Acid 1.2 Calcium Magnesium Total Bilirubin Direct Bilirubin AST ALT Alkaline Phosphatase Total Protein Albumin Lipase COVID-19 (SHIN) Negative COVID-19 Clin Com See Note Influenza Type A (CRISTINA) Influenza Type B (CRISTINA) Influenza A & B Note Procedures Date of Service Date of Service: 01/29/22 Progress Note: A&P Assessment and plan (1) Acute appendicitis: Status: Acute Assessment and Plan: S/P lap appy doing well diet as tolerated ok to dc home this morning if tolerating regular diet dc instructions reviewed pt also to see Dr. Blake for urolithiases Time Spent With Patient Time: Total time spent is greater than 50% in coordination of care (as documented) at patient's floor/unit and/or counseling patient: Quality Stroke Does the patient have a stroke diagnosis?: No VTE Prior VTE?: No VTE Risk Level:: Surgical - low VTE Device Contraindication: Treatment Not Indicated VTE Drug Contraindication: Treatment Not Indicated
[2022-01-29 07:47] VITALS: BP 124/62; PULSE 62; RESP 18; TEMP 36.4; O2SAT 98
--- NOTE | 2022-01-29 10:13 | MHC.CM.PN ---
PATIENT IS FULLY INDEPENDENT HE IS EXPECTING TO DC HOME TODAY AND HAS A RIDE HE HAS BEEN COVID VACCINATED X 2 AND DID HAVE COVID-19 IN SEPTEMBER 2019. NO PCP, BUT DOES SEE A GATE SUPERVISOR. NO HPC ON FILE AND WILL CONSIDER ASSIGNING AN AGENT CASE MANAGEMENT FOLLOWING FOR ANY DC NEEDS HE TOLERATED BREAKFAST. NO N/V
--- NOTE | 2022-01-29 10:39 | PM.EVENT ---
Event Note Date of Service: 01/29/22 Event Note: continues to feels well pain well controlled tolerated breakfast no N/V says he is ready to go home looks well abd remains benign ok to dc home dc instructions reviewed with him and mother pt also referred to for urolithiases
[2022-01-29] MEDS: Ketorolac Tromethamine 15 MG/ML VIAL IVPUSH (11:32)
--- NOTE | 2022-01-29 11:32 | PM.DS ---
DS: Providers Provider Date of Service: 01/29/22 Date of admission: 01/28/22 17:03 Date of discharge: 01/29/22 Primary care physician: Unknown Physician DS: Diagnosis Discharge Diagnosis (1) Acute appendicitis: Status: Acute DS: Summary Hospital Course Hospital Course: 21M with RLQ pain x 1 day, with leukocytosis and CT showing appendcitis. He underwent laparoscopic appendectomy on the evening of January 28, 2022. He tolerated the procedure well. He was in the medsurg unit postop. He had good pain control overnight. He tolerated regualr diet on the morning of January 29. He continued to do well so he was discharged later in the day. Time spent discussing smoking cessation with patient: more than 10 minutes Time Spent with Patient Time attestation: Total time spent providing and/or coordinating discharge services: Discharge coordination time: Less than 30 minutes Quality: Safe Use of Opioids Does Pt have an Active Cancer Diagnosis on the Problem List?: No Quality: Stroke Does the patient have a stroke diagnosis?: No Reason for No Anti-thrombotic at DC: Not indicated Reason for No Anticoagulant at DC: Not indicated Physical Exam Vital Signs: Vital Signs: Last Vital Signs Temp 97.5 F 01/29/22 07:47 Pulse 62 01/29/22 07:47 Resp 18 01/29/22 07:47 BP 124/62 01/29/22 07:47 Pulse Ox 98 01/29/22 07:47 BMI result Body Mass Index 25.9 Const: General: comfortable and no acute distress Resp: Effort & Inspection: normal respiratory effort Auscultation: clear to auscultation bilaterally Cardio: Rate: regular rate GI: Other: incisions clean and dry Palpation (GI): Soft to palpation, not firm, nontender and no guarding DS: Data Data Completed and Pending Pending studies at discharge: Pending at discharge 01/28/22 18:58 Surgical [PTH] Routine Labs on day of discharge: Laboratory Results - last 24 hr 01/28/22 01/28/22 01/28/22 11:12 11:12 11:12 Sodium 142 Potassium 3.7 Chloride 103 Carbon Dioxide 26 Anion Gap 17 BUN 14 Creatinine 1.28 Estim Creat Clear Calc 90.5 Estimated GFR > 60 Random Glucose 115 Lactic Acid Calcium 10.6 H Magnesium 1.9 Total Bilirubin 1.3 H Direct Bilirubin 0.5 AST 16 ALT 16 Alkaline Phosphatase 57 Total Protein 8.5 H Albumin 5.3 H Lipase 30 COVID-19 ([facility]IN) Negative COVID-19 Clin Com See Note Influenza Type A ([facility]) Negative Influenza Type B ([facility]) Negative Influenza A & B Note See Note 01/28/22 16:12 Sodium Potassium Chloride Carbon Dioxide Anion Gap BUN Creatinine Estim Creat Clear Calc Estimated GFR Random Glucose Lactic Acid 1.2 Calcium Magnesium Total Bilirubin Direct Bilirubin AST ALT Alkaline Phosphatase Total Protein Albumin Lipase COVID-19 ([facility]) COVID-19 Clin Com Influenza Type A ([facility]INA) Influenza Type B ([facility]) Influenza A & B Note Imaging CT scan - abdomen: Radiologist's impression: ITS Impressions Abdomen/Pelvis CT 01/28/22 16:05 IMPRESSION: 1. Mildly dilated, fluid-filled appendix with multiple small appendicoliths and mild adjacent stranding consistent with acute appendicitis. No evidence of perforation or abscess formation. 2. Left renal pelvic stone measuring 1.4 cm with adjacent stranding and mild left-sided hydronephrosis. Additional 1.1 cm left lower pole renal stone. Nonobstructing right-sided 0.4 cm renal stone. No right-sided hydronephrosis or hydroureter. Fleischner guidelines were followed. Discharge Plan Discharge Patient Disposition: Home, Self-Care Discharge Diagnosis: Acute appendicitis Referrals: Alton Blake MD [Physician] - 3 Weeks ( has uro lithiasis, mild hydronephrosis) Franc Dorsey MD [Physician] - 1 Week Physician,Wagner J [Primary Care Provider] - 1 Week Discharge Medications: New oxycodone-acetaminophen [Percocet] 5-325 mg tablet 1 tab PO Q4-6H PRN (Reason: pain, severe) Qty: 25 0RF ibuprofen 600 mg tablet 600 mg PO Q6H PRN (Reason: pain) Qty: 30 0RF Discharge Orders: Discharge Order (Routine); Ordered 01/29/22 Ordered By: Franc Dorsey Diet: advance to usual diet Activity on Discharge: No heavy lifting Stand Alone Forms: Patient Portal Discharge page Activity Restrictions/Additional Instructions: If the incision area is tender, you may apply an ice pack for short intervals (No more than 20 minutes on, followed by at least 20 minutes off). Do not apply heat. Do not use creams, lotions, or topical antibiotics unless instructed to do so by your surgeon. These can cause infection or allergic reaction. OK to shower by January 30 OK to change dressings with Bandaids after showering No lifting more than 20 lbs No strenuous activities Call the office for follow-up in 2 weeks - with Dr. Dorsey Call Your Doctor If: -Your temperature exceeds 101.5? F -You experience excessive pain or swelling -You have an unexpected reaction to medication -You have excessive bleeding -You experience continued vomiting/nausea -Your incision begins to separate -Your incision shows signs of infection such as increased redness, swelling, excessive pain, drainage (light blood or clear fluid is normal) or heat Care Plan Goals: control pain with oral meds Health Concerns: postop appendectomy kidney stones Plan of Treatment: oral pain meds refer to Dr Blake of Urology for kidney stones Assessment: doing very well
== END 2022-01-29 11:45 | disposition home or self-care (01) | DRG 225 ==
LOC: HO.ED 16:50 → HO.EDOVER 17:08 → HO.S3 17:58
PROVIDERS: Physician Assistant; Admitting Provider Surgery; Emergency Provider Emergency Medicine; Visit Provider Surgery
PROC: 0DTJ4ZZ Resection of Appendix, Percutaneous Endoscopic Approach (ICD-10-PCS; CPT 44970; principal; 2022-01-28 17:30)
DX: K35.80 Unspecified acute appendicitis (principal); N13.2 Hydronephrosis with renal and ureteral calculous obstruction; F17.210 Nicotine dependence, cigarettes, uncomplicated; Z71.6 Tobacco abuse counseling; Z20.822 Contact with and (suspected) exposure to COVID-19
CPT/HCPCS: 44970; 36415; 74176; 80053; 82248; 83605; 83690; 83735; 85025; 87040; 87502; 87635; 88304; 96361; 96374; 96375; 99024; 99285; J0330; J1100; J1885; J2250; J2405; J3010

== ENCOUNTER 2022-01-30 21:49 | Emergency (ER) | payer BC, SELFPAY ==
[2022-01-30 21:51] VITALS: BP 129/74; PULSE 62; RESP 16; TEMP 36.7; O2SAT 99; BMI 26.0
[2022-01-30] MEDS: Acetaminophen 325 MG TABLET 650 MG PO (22:02)
--- NOTE | 2022-01-31 00:03 | ED_ITS ---
HPI - Wound/Laceration General Chief Complaint: Wound/Laceration Stated Complaint: Open wound post surgery Time Seen by Provider: 01/30/22 22:32 Source: patient Mode of arrival: ambulatory History of Present Illness HPI narrative: 21-year-old male with a past medical history of laparoscopic appendectomy on 01/28 presenting to the ED complaining of bleeding from umbilical incision since discharge yesterday morning. Admits is soaking through dressings. Denies fever, chills, trauma, abdominal pain, nausea, vomiting, lightheadedness/dizziness Onset (ago): hour(s) Related Data Previous Rx's Medication Instructions Recorded ibuprofen 600 mg tablet 600 mg PO Q6H PRN #30 tab 01/29/22 oxycodone-acetaminophen 5 mg-325 1 tab PO Q4-6H PRN #25 tab 01/29/22 mg tablet (Percocet) Allergies Allergy/AdvReac Type Severity Reaction Status Date / Time No Known Allergies Allergy Verified 01/30/22 21:51 [No Known Allergies*] Review of Systems Review of Systems: Constitutional: No Fever, No Chills ENT/Mouth: No Ear Pain, No Nasal Congestion, No sore throat, No Rhinorrhea Cardiovascular: No Chest Pain, No SOB Respiratory: No Cough, No Sputum, No Wheezing Gastrointestinal: No Nausea, No Vomiting, No Diarrhea, No Constipation, No Abdominal pain Genitourinary: No Dysuria, No Urinary Frequency, No Urgency, No Flank Pain Musculoskeletal: No joint pain, No Myalgias, No Joint Swelling Skin: + bleeding from surgical site, No rash Neuro: No Weakness, No Numbness, No Paresthesias Yes all other systems are reviewed and are negative [facility] Past Medical History Attestation statement: The following information was validated with the patient. Medical History Kidney stone Social History Social History Household Members: Family Housing: House Do you presently have visiting nurse or other home services: No Patient Tobacco Use Status: Current everyday Tobacco user Tobacco use type: Cigarette Substance Use Type: Marijuana Advance Directives: No Advance Directives Information Provided: Yes service: No Current occupational status: employed Physical Exam Vital Signs: Vital Signs: Last Vital Signs Temp 98.0 F 01/30/22 21:51 Pulse 62 01/30/22 21:51 Resp 16 01/30/22 21:51 BP 129/74 01/30/22 21:51 Pulse Ox 99 01/30/22 21:51 BMI result Body Mass Index 26.0 Const: General: cooperative, healthy appearing and no acute distress Orientation/consciousness: patient oriented x3 Limitations: no limitations HEENT: Head: Yes normal to inspection and Yes atraumatic Ears: hearing grossly normal bilaterally General nose exam: Normal external nose present Face and sinus: Yes normal facial exam Eyes: General: appearance normal, both eyes and all related structures EOM: EOMs intact bilaterally Neck: Neck: Yes normal visual inspection and Yes no meningeal signs Resp: Effort & Inspection: normal respiratory effort and no respiratory distress Cardio: Rate: regular rate Heart sounds: S1 normal heart sound present and S2 normal heart sound present GI: Other: + umbilical incision site with slight bleeding and visible clot. No active hemorrhage. No surrounding erythema, fluctuance or induration Other incision sites with Steri-Strips intact, no active bleeding or evidence of infection/cellulitis Inspection: Yes normal to inspection Palpation (GI): Soft to palpation, nontender, no guarding and not rigid Skin: Rashes: no rashes Wounds: no wounds Neuro: General: patient oriented x3, tone normal and no meningeal signs Gait exam (Neuro): Normal gait present Extrem: General: Yes normal to inspection Course Course Course Narrative: Small amount of bleeding noted from a visible clot in wound. Clot evacuated with forceps > bleeding subsided observed for 15 minutes without re-bleeding -on re-evaluate no active bleeding noted > Steri-Strips reapplied then observed again for about 10minutes without evidence of bleeding >Discussed with patient worrisome signs and symptoms and strict return precautions MDM - Wound/Laceration MDM Narrative Medical decision making narrative: 21-year-old male with a past medical history of laparoscopic appendectomy on 01/28 presenting to the ED complaining of bleeding from umbilical incision since discharge yesterday morning. On exam vital signs stable, NAD, nontoxic appearing, abdomen soft/nontender, physical exam as above with noted slow leakin g/bleeding from umbilical surgical incision. No evidence of active infection/cellulitis. No evidence of hematoma or abscess Plan: Dislodged clot, observe, reapply Steri-Strips Medical Records Attestation: I reviewed the patient's medical records. Lab Data Attestation: I reviewed the patient's lab results. Discharge Plan Discharge Clinical Impression: Post surgical complication Patient Disposition: Home, Self-Care Instructions: Skin Adhesive Care (ED) Additional Instructions: Keep a close eye on her wounds. If area begins to bleed again, does not stop bleeding, is soaking through bandages, he developed fever, pain, or begins to look infected please return to the emergency department. Please follow-up with your doctors as scheduled Prescriptions: No Action oxycodone-acetaminophen [Percocet] 5-325 mg tablet 1 tab PO Q4-6H PRN (Reason: pain, severe) Qty: 25 0RF ibuprofen 600 mg tablet 600 mg PO Q6H PRN (Reason: pain) Qty: 30 0RF Referrals: Franc Dorsey MD [Physician] - Interventions: ED Discharge Assessment Last Done: 01/31/22 00:39 Discharge Date/Time: 01/31/22 00:41
== END 2022-01-31 00:41 | disposition home or self-care (01) ==
PROVIDERS: Emergency Provider Student in an Organized Health Care Education/Training Program
DX: R10.33 Periumbilical pain (principal); F17.210 Nicotine dependence, cigarettes, uncomplicated; Z71.6 Tobacco abuse counseling; F12.90 Cannabis use, unspecified, uncomplicated; Z79.899 Other long term (current) drug therapy
CPT/HCPCS: 99282; 99283

== ENCOUNTER 2022-03-08 07:34 | Day surgery (SDC) | payer BC, SELFPAY ==
[2022-03-01 14:03] VITALS: BMI 25.9
--- NOTE | ~2022-03-08 | XR_ITS ---
EXAMINATION: XR ABDOMEN KUB CLINICAL INDICATION: Stones. COMPARISON: CT abdomen and pelvis 01/20/2022 TECHNIQUE: AP view of the abdomen. FINDINGS: There is moderate stool seen throughout the colon without any significant distention. There is a likely a radiopaque calculi left kidney measuring 9 mm as was noted on previous CT abdomen and pelvis exam 01/28/2022. No additional radiopaque calculi seen. No gross bony abnormality. XR/XR KUB IMPRESSION: 9 mm radiopaque calculi seen in the left kidney pelvis. CT visualized stone in the left proximal left ureter is not visualized on the present exam Moderate to severe constipation.
[2022-03-08 07:50] VITALS: BP 120/67; PULSE 51; RESP 16; TEMP 36; O2SAT 99
[2022-03-08] MEDS: Acetaminophen 325 MG TABLET 650 MG PO (08:06)
[2022-03-08] MEDS: levoFLOXacin 500 MG TABLET PO (08:06)
[2022-03-08] MEDS: Lactated Ringers 1,000 ML 50 ML IVCONT (08:11)
--- NOTE | 2022-03-08 09:24 | P.HPSUR_ITS ---
Pre-Procedural Eval Section A Date of Service: 03/08/22 The patient is an INPATIENT: No Changes since office visit: No Cold of Flu in the past 2 weeks, No New Medical Problems, No Changes in Medication and No Patient answered all questions The History & Physical has been completed within 30 days and I have reviewed it.: Yes Section B Chief Complaint: Calculus of kidney Details of Present Illness: left side Relevant Social History: None Present Medications: see Short Stay Collaborative assessment Medical History: No relevant PMH History of Previous Operations: No relevant previous surgery Allergies: Allergies Allergy/AdvReac Type Severity Reaction Status Date / Time No Known Allergies Allergy Verified 03/01/22 13:57 [No Known Allergies*] Review of Systems Sugical H&P ROS: Negative: Constitution, Cardiovascular, Respiratory, Neurological, Psychiatric, Hem-Onc, Allergic/Immunologic, Gastrointestinal, Genitourinary, Musculoskeletal, Integumentary, Endocrine and Eyes/Ears /Nose/Throat Exam Surgical H&P Exam: Normal: HEENT, Normal: Heart, Normal: Lungs, Normal: Extremities, Normal: Abdomen, Normal: Skin and Normal: Neurological Plan Diagnosis/Plan: Unchanged (left eswl) I have reviewed the history and physical and performed a pertinent physical examination on my patient. No changes have occurred unless specified.
--- NOTE | 2022-03-08 09:56 | HO.ANESPROP2 ---
[facility] Active Problems Active Problems: All Active Problems (Updated 02/23/22 @ 09:38 by Franc Dorsey MD) Kidney stone (Acute) Ureteropelvic junction calculus (Acute) Acute appendicitis (Acute) Past Medical History Medical History Kidney stone Family History Family history of problems with anesthesia: No Surgical History Surgical History History of laparoscopic appendectomy History of Problems with Anesthesia: No Social History Social History Household Members: Family Housing: House Do you presently have visiting nurse or other home services: No Patient Tobacco Use Status: Current everyday Tobacco user Tobacco use type: Smokeless Tobacco Use of substances other than those prescribed or required for medical reasons: Yes Substance Use Type: Marijuana Substance Use Frequency: Daily Are you DNR?: No Advance Directives: No Advance Directives Information Provided: Yes service: No Current occupational status: employed Meds Allergies Allergy/AdvReac Type Severity Reaction Status Date / Time No Known Allergies Allergy Verified 03/01/22 13:57 [No Known Allergies*] Home Medications Medication Instructions Recorded Confirmed Last Taken Type No Known Home Meds 03/01/22 03/01/22 Unknown History Exam Exam Date and Time: March 08, 2022 0956 Height,Weight and Vital Signs: Height 5 ft 9 in Weight 79.832 kg Last Vital Signs Temp 96.8 F 03/08/22 07:50 Pulse 51 03/08/22 07:50 Resp 16 03/08/22 07:50 BP 120/67 03/08/22 07:50 Pulse Ox 99 03/08/22 07:50 O2 Del Method 03/08/22 07:50 Airway Mallampati Class: II TM Dist: >3cm Neck ROM: Full Loose/Missing/Broken Teeth: No Heart: RRR Lungs: CTA Assessment and Plan Final Anesthetic Review Family History of Problems with Anesthesia: No History of Problems with Anesthesia: No ASA Class: II Final Preanesthetic Review: Meds/Allgs Chart Reviewed, Consent Obtained/Reviewed and Anes Risks/Benef Reviewed Patient Risk: Low Procedure Risk: Low Anesthetic Plan Anesthetic Plan: MAC: Disposition: Standard PACU
--- NOTE | 2022-03-08 10:23 | W.PM.OPN ---
Operative Note Operative Note Date of Service: 03/08/22 Narrative: PreOperative Diagnosis: Left proximal ureteric stone Post Operative Diagnosis: Left proximal ureteric stone Procedure: Left proximal ureter ESWL Surgeon: Dr Alton Blake Anesthesia: mac/sedation Indications for procedure: The patient understands ESWL may be a staged procedure and subsequent intervention may be required based on imaging after ESWL. They also understand there is a risk of bleeding to the kidney, infection, damage to adjacent organs, and stone migration following the procedure. - Imaging 14 mm left proximal stone Procedure: After informed consent was verified the patient was brought to the operating room and placed in a supine position. Anesthesia was performed per protocol. Safety pause time-out was performed. Imaging was displayed in the room and laterality confirmed. ESWL was performed. The 1st 500 shocks were performed at 60 hertz. These were performed with increasing power. Once maximum power was reached the rate was increased to 180 hertz. A total of 3000 shocks were given. Targeted imaging with ultrasound/fluoroscopy showed stone smudging suggestive of disintegration. The patient tolerated the procedure well and was transferred to the recovery area upon completion. Post procedure imaging will be organized. There was no evidence for flank discoloration.
[2022-03-08 10:48] VITALS: BP 112/46; PULSE 53; RESP 20; TEMP 36.6; O2SAT 98
[2022-03-08 10:53] VITALS: BP 101/53; PULSE 51; RESP 17; O2SAT 98
[2022-03-08 11:03] VITALS: BP 104/55; PULSE 46; RESP 17; O2SAT 98
[2022-03-08 11:18] VITALS: BP 114/57; PULSE 57; RESP 16; TEMP 36.6; O2SAT 100
== END 2022-03-08 11:59 | disposition home or self-care (01) ==
PROVIDERS: Visit Provider Urology
PROC: (CPT 50590; principal; 2022-03-08 09:20)
DX: N20.1 Calculus of ureter (principal); F17.210 Nicotine dependence, cigarettes, uncomplicated; F12.90 Cannabis use, unspecified, uncomplicated; Z87.442 Personal history of urinary calculi
CPT/HCPCS: 50590; 74018; J1940; J2250; J3010